=== PATIENT | female | born 1965 | race Caucasian/White ===

== ENCOUNTER 2018-12-26 13:22 | Outpatient (CLI) | payer OTHER | END 2018-12-26 13:31 | disposition home or self-care (01) | LOC: RAD 13:22 | DX: M17.11 Unilateral primary osteoarthritis, right knee (principal); M25.561 Pain in right knee ==

== ENCOUNTER 2022-12-16 13:45 | Outpatient (CLI) | payer OTHER | END 2022-12-16 13:55 | disposition home or self-care (01) | LOC: RAD 13:45 | PROVIDERS: ATTEND Physical Medicine & Rehabilitation | DX: M17.12 Unilateral primary osteoarthritis, left knee (principal) ==

== ENCOUNTER → 2022-12-29 13:42 | Outpatient (CLI) | payer OTHER | END | disposition home or self-care (01) | LOC: NUCLEAR 12-27 13:15 | PROVIDERS: ATTEND Physical Medicine & Rehabilitation | DX: M81.0 Age-related osteoporosis without current pathological fracture (principal) ==

== ENCOUNTER 2024-01-09 20:51 | Emergency (ER) | payer OTHER ==
[~2024-01-09] VITALS: Ht 172.7 cm; Wt 77.1 kg
[2024-01-09] MEDS ORDERED: ATORVASTATIN CA10 MG PO (21:39)
[2024-01-09] MEDS ORDERED: FUROsemide 20 MG/2 ML VIAL IV ONE (22:15)
[2024-01-09] MEDS ORDERED: ENALAPRILAT DIHYDRATE 2.5 MG/2 ML VIAL IV ONE (22:15)
[2024-01-09] MEDS ORDERED: CLONIDINE HCL 0.1 MG TABLET PO ONE (22:15)
[2024-01-09 22:58] LABS: PH,URINE 7.5 (5.0-8.0); URINE APPEARANCE Clear; URINE BILIRRUBIN Negative (NEGATIVE); URINE BLOOD Negative; URINE COLOR Yellow; URINE GLUCOSE Negative (NEGATIVE); URINE LEUKOCYTE Negative; URINE NITRATE Negative; URINE PROTEIN Negative (NEGATIVE); URINE UROBILINOGEN 0.2 E.U./dl
[2024-01-09 23:01] LABS: URINE WBC 1.9 uL (0.0-23.2)
[2024-01-09 23:03] LABS: HEMOGLOBIN 13.9 g/dL (12.0-15.00); MEAN CELL VOLUME 84.9 fL (80.00-100.00); MEAN CORPUSCULAR HEMOGLOBIN 28.9 pg (27.00-32.0); PLATELET COUNT 170 K/uL (150-450); RED BLOOD COUNT 4.83 M/uL (4.00-6.00); RED CELL DISTRIBUTION WIDTH 13.6 % (11.5-14.5)
[2024-01-09 23:15] LABS: URINE EPITHELIAL CELLS 0.1 uL (0.0-38.8); URINE RBC 1.9 uL (0.0-20.8)
[2024-01-09 23:16] LABS: URINE BACTERIA 0 uL (0.0-1933)
[2024-01-09] MEDS ORDERED: HYZAAR 50-12.51 EACH PO (23:37)
[2024-01-09 23:53] LABS: ALBUMIN 3.8 gm/dL (3.4-5.0); BILIRUBIN TOTAL 0.58 mg/dL (0.3-1.2); CALCIUM 9.3 mg/dL (8.5-10.1); CREATININE SERUM 0.86 mg/dL (0.55-1.02); GFR 67.54; GLOBULINA 3.3 G/DL (2.4-3.5); POTASSIUM 3.86 mEq/L (3.5-5.1); TOTAL PROTEIN 7.1 gm/dL (6.4-8.2)
== END 2024-01-10 00:34 | disposition home or self-care (01) ==
LOC: ER 20:52
PROVIDERS: General Practice
DX: I10 Essential (primary) hypertension (principal); Z20.822 Contact with and (suspected) exposure to COVID-19

== ENCOUNTER 2025-02-15 10:21 | Outpatient (CLI) | payer OTHER ==
[~2025-02-15 10:21] MED LIST: ATORVASTATIN CA10 MG PO; HYZAAR 50-12.51 EACH PO
== END 2025-02-15 10:25 | disposition home or self-care (01) ==
LOC: RAD 10:21
PROVIDERS: ATTEND Physical Medicine & Rehabilitation
DX: M17.11 Unilateral primary osteoarthritis, right knee (principal); M17.12 Unilateral primary osteoarthritis, left knee

== ENCOUNTER 2025-03-06 11:16 | Outpatient (CLI) | payer OTHER | END 2025-03-06 11:17 | disposition home or self-care (01) | LOC: NUCLEAR 11:16 | DX: Q78.2 Osteopetrosis (principal); M81.0 Age-related osteoporosis without current pathological fracture ==